=== PATIENT | female | born 1935 | race Caucasian/White ===

== ENCOUNTER 2017-06-16 14:47 | Inpatient (IN) | payer MEDICARE, OTHER ==
[2017-06-16] MEDS: ONDANSETRON PF 4 MG/2 ML VIAL. IV (15:13)
[2017-06-16 15:15] LABS: BASO % 0 % (0-3); EOS % 0 % (0-3); HEMATOCRIT 36.1 % (36.0-47.0); HEMOGLOBIN 11.9 g/dL (12.0-15.5); LYMPH # 0.7 x10^3/uL (1.0-4.8); LYMPH % 6 % (24-48); MEAN CORPUSCULAR HEMOGLOBIN 30 pg (25-35); MEAN CORPUSCULAR HGB CONC 33 g/dL (31-37); MEAN CORPUSCULAR VOLUME 91 fL (79-100); MONO # 0.6 x10^3/uL (0.0-1.1); MONO % 5 % (0-9); NEUT # 10.1 x10^3uL (1.8-7.7); NEUT % 88 % (31-73); PLATELET COUNT 374 x10^3/uL (140-400); RED BLOOD COUNT 3.95 x10^6/uL (3.50-5.40); RED CELL DISTRIBUTION WIDTH 14.1 % (11.5-14.5); WHITE BLOOD COUNT 11.5 x10^3/uL (4.0-11.0)
[2017-06-16] MEDS: fentaNYL PF VIAL 100 MCG/2 ML VIAL IV ×2 (15:16→20:45)
[2017-06-16 15:23] LABS: ADD MAN DIFF? YES
[2017-06-16 15:27] LABS: PROTHROMBIN TIME PATIENT 12.7 SEC (11.7-14.0)
[2017-06-16 15:43] LABS: ANION GAP 6 (6-14); BLOOD UREA NITROGEN 41 mg/dL (7-20); BUN/CREATININE RATIO 29 (6-20); CALCIUM 9.1 mg/dL (8.5-10.1); CARBON DIOXIDE 34 mmol/L (21-32); CHLORIDE 98 mmol/L (98-107); CREATININE 1.4 mg/dL (0.6-1.0); GLUCOSE 261 mg/dL (70-99); POTASSIUM 4.6 mmol/L (3.5-5.1); SODIUM 138 mmol/L (136-145)
[2017-06-16 15:50] LABS: ALBUMIN 3.1 g/dL (3.4-5.0); ALBUMIN/GLOBULIN RATIO 0.8 (1.0-1.7); ALK PHOS 107 U/L (46-116); ALT (SGPT) 30 U/L (14-59); AST (SGOT) 25 U/L (15-37); TOTAL BILIRUBIN 0.2 mg/dL (0.2-1.0); TOTAL PROTEIN 7.2 g/dL (6.4-8.2)
[2017-06-16] MEDS ORDERED: ONDANSETRON PF 4 MG/2 ML VIAL. IV (16:30)
[2017-06-16 16:50] LABS: % LYMPHS 12 % (24-48); % MONOS 3 % (0-10); % SEGS 85 % (35-66)
[2017-06-16 16:51] LABS: PLT ESTIMATE ADEQUATE (ADEQUATE)
[2017-06-16] MEDS: IV NORMAL SALINE 1000ML BAG 1,000 ML IV ×2 (17:45→23:06)
[2017-06-16] MEDS: ALPRAZolam 0.25 MG TABLET PO (20:45)
[2017-06-16] MEDS: PRIMIDONE 50 MG TABLET PO (20:45)
[2017-06-16] MEDS: traZODone 50 MG TABLET. PO (21:00)
[2017-06-16] MEDS: IPRATRPIUM/ALBUTEROL 0.5/2.5MG 3 ML NEBU. NEB (22:30)
[2017-06-17] MEDS: fentaNYL PF VIAL 100 MCG/2 ML VIAL IV ×5 (01:26→12:21)
[2017-06-17] MEDS: traMADol 50 MG TABLET PO (06:23)
[2017-06-17] MEDS: IPRATRPIUM/ALBUTEROL 0.5/2.5MG 3 ML NEBU. NEB ×4 (07:08→19:05)
[2017-06-17] MEDS ORDERED: DEXAMETHASONE SOD PHOS 20 MG/5 ML VIAL. (07:14)
[2017-06-17] MEDS ORDERED: PROPOFOL 20 ML IV (07:14)
[2017-06-17] MEDS ORDERED: ONDANSETRON PF 4 MG/2 ML VIAL. (07:14)
[2017-06-17] MEDS ORDERED: LIDOCAINE 2% PF Vial for OR 5 ML VIAL. (07:14)
[2017-06-17] MEDS: POTASSIUM CHLORIDE 20 MEQ TABLET.ER. PO (08:00)
[2017-06-17] MEDS ORDERED: IPRATRPIUM/ALBUTEROL 0.5/2.5MG 3 ML NEBU. NEB (08:00)
[2017-06-17] MEDS ORDERED: fentaNYL PF VIAL 100 MCG/2 ML VIAL (08:03)
[2017-06-17] MEDS ORDERED: ROCURONIUM 50 MG/5 ML VIAL. (08:03)
[2017-06-17] MEDS: BUPIVACAINE-EPI 0.25%-1:200000 50 ML VIAL. (08:31)
[2017-06-17] MEDS ORDERED: PHENYLEPHRINE in 0.9% NACL PF 1 MG/10 ML SYRINGE. IV (08:36)
[2017-06-17] MEDS: ASPIRIN ENTERIC COATED 325 MG TABLET.DR. PO (09:00)
[2017-06-17] MEDS: PRIMIDONE 50 MG TABLET PO ×3 (09:00→20:56)
[2017-06-17] MEDS ORDERED: DESFLURANE 61 TO 120 MINUTES IH (09:00)
[2017-06-17] MEDS: CITALOPRAM 20 MG TABLET. PO (09:00)
[2017-06-17] MEDS: predniSONE 20 MG TABLET PO (09:00)
[2017-06-17] MEDS: ATENOLOL 50 MG TABLET. PO (09:00)
[2017-06-17] MEDS ORDERED: GLYCOPYRROLATE 1 MG/5 ML VIAL. (09:30)
[2017-06-17] MEDS ORDERED: NEOSTIGMINE 10 MG/10 ML VIAL. (09:30)
[2017-06-17] MEDS ORDERED: fentaNYL PF VIAL 100 MCG/2 ML VIAL IV ×2 (10:00→10:15)
[2017-06-17] MEDS ORDERED: ONDANSETRON PF 4 MG/2 ML VIAL. IV ×2 (10:00→10:15)
[2017-06-17] MEDS ORDERED: MORPHINE SULFATE 2 MG/ML DISP.SYRIN. IV (10:00)
[2017-06-17] MEDS ORDERED: DEXTROSE 50% 25 GM / 50ML DISP.SYRIN. IV (10:00)
[2017-06-17 10:06] LABS: POC GLUCOSE 196 mg/dL (70-99)
[2017-06-17] MEDS ORDERED: PROCHLORPERAZINE 10 MG/2 ML VIAL. IV (10:15)
[2017-06-17] MEDS ORDERED: LIDOCAINE 1% PF 2 ML VIAL. ID (10:15)
[2017-06-17] MEDS: IV RINGERS,LACTATED 1000ML 1,000 ML IV (10:52)
[2017-06-17 12:24] LABS: ANION GAP 4 (6-14); BLOOD UREA NITROGEN 39 mg/dL (7-20); CALCIUM 8.3 mg/dL (8.5-10.1); CARBON DIOXIDE 36 mmol/L (21-32); CHLORIDE 101 mmol/L (98-107); CREATININE 1.4 mg/dL (0.6-1.0); GLUCOSE 245 mg/dL (70-99); POTASSIUM 4.3 mmol/L (3.5-5.1); SODIUM 141 mmol/L (136-145)
[2017-06-17 12:31] LABS: NT-PRO BNP 679 pg/mL (0-449)
[2017-06-17 12:31] LABS: CHOLESTEROL 217 mg/dL (0-200); HDLC 56 mg/dL (40-60); LDLC 103 mg/dL (0-100); NON-HDL CHOLESTEROL 161 mg/dL (0-129); TRIGLYCERIDES 292 mg/dL (0-150); VLDLC 58 mg/dL (0-40)
[2017-06-17 12:35] LABS: CHOLESTEROL/HDL RATIO 3.9
[2017-06-17] MEDS: MORPHINE SULFATE 4 MG/ML DISP.SYRIN. IV (16:33)
[2017-06-17 16:35] LABS: PH ABG 7.35 (7.35-7.45)
[2017-06-17 16:36] LABS: BASE EXCESS ABG 6 mmol/L (-3-3); HCO3 ABG 33 mmol/L (21-28); PCO2 ABG 61 mmHg (35-46); PO2 ABG 73 mmHg (65-108); SAT O2 ABG 94 % (92-99)
[2017-06-17] MEDS: oxyCODONE IR 5 MG TABLET PO ×2 (17:26→20:58)
[2017-06-17] MEDS: traZODone 50 MG TABLET. PO (20:57)
[2017-06-17] MEDS: HYDROcodone/APAP 7.5/325MG 1 TAB TABLET PO (23:21)
[2017-06-18] MEDS: oxyCODONE IR 5 MG TABLET PO ×2 (04:46→13:11)
[2017-06-18 05:17] LABS: ADD MAN DIFF? NO
[2017-06-18 05:33] LABS: BASO % 0 % (0-3); EOS # 0.1 x10^3/uL (0.0-0.7); EOS % 1 % (0-3); HEMATOCRIT 31.8 % (36.0-47.0); HEMOGLOBIN 10.2 g/dL (12.0-15.5); LYMPH # 1.3 x10^3/uL (1.0-4.8); LYMPH % 16 % (24-48); MEAN CORPUSCULAR HEMOGLOBIN 30 pg (25-35); MEAN CORPUSCULAR HGB CONC 32 g/dL (31-37); MEAN CORPUSCULAR VOLUME 93 fL (79-100); MONO # 0.8 x10^3/uL (0.0-1.1); MONO % 10 % (0-9); NEUT # 5.8 x10^3uL (1.8-7.7); NEUT % 73 % (31-73); PLATELET COUNT 293 x10^3/uL (140-400); RED BLOOD COUNT 3.44 x10^6/uL (3.50-5.40); RED CELL DISTRIBUTION WIDTH 14.6 % (11.5-14.5)
[2017-06-18 05:52] LABS: ANION GAP 1 (6-14); BLOOD UREA NITROGEN 25 mg/dL (7-20); CALCIUM 8.4 mg/dL (8.5-10.1); CARBON DIOXIDE 38 mmol/L (21-32); CHLORIDE 102 mmol/L (98-107); CREATININE 1.2 mg/dL (0.6-1.0); GLUCOSE 216 mg/dL (70-99); POTASSIUM 3.9 mmol/L (3.5-5.1); SODIUM 141 mmol/L (136-145)
[2017-06-18] MEDS ORDERED: MAGNESIUM HYDROXIDE 2,400 MG/30 ML ORAL.SUSP. PO (06:00)
[2017-06-18] MEDS: HYDROcodone/APAP 7.5/325MG 1 TAB TABLET PO (06:27)
[2017-06-18] MEDS: IPRATRPIUM/ALBUTEROL 0.5/2.5MG 3 ML NEBU. NEB ×4 (07:41→20:03)
[2017-06-18] MEDS: ASPIRIN 325 MG TABLET PO (08:00)
[2017-06-18] MEDS: ASPIRIN ENTERIC COATED 325 MG TABLET.DR. PO (08:49)
[2017-06-18] MEDS: CHOLECALCIFEROL (VITAMIN D3) 1,000 UNIT TABLET PO (08:49)
[2017-06-18] MEDS: POTASSIUM CHLORIDE 20 MEQ TABLET.ER. PO (08:49)
[2017-06-18] MEDS: predniSONE 20 MG TABLET PO (08:49)
[2017-06-18] MEDS: SENNOSIDES/DOCUSATE 8.6/50MG TABLET. PO (08:49)
[2017-06-18] MEDS: CITALOPRAM 20 MG TABLET. PO (08:49)
[2017-06-18] MEDS: ATENOLOL 50 MG TABLET. PO (08:49)
[2017-06-18] MEDS: PRIMIDONE 50 MG TABLET PO ×3 (08:52→20:29)
[2017-06-18] MEDS ORDERED: BISACODYL 10 MG SUPP.RECT. PR (16:00)
[2017-06-18] MEDS: traZODone 50 MG TABLET. PO (20:28)
[2017-06-18] MEDS: traMADol 50 MG TABLET PO (20:28)
[2017-06-19] MEDS: HYDROcodone/APAP 7.5/325MG 1 TAB TABLET PO ×3 (01:56→18:14)
[2017-06-19 05:38] LABS: ADD MAN DIFF? NO
[2017-06-19 05:58] LABS: ANION GAP 2 (6-14); BLOOD UREA NITROGEN 17 mg/dL (7-20); CALCIUM 8.1 mg/dL (8.5-10.1); CARBON DIOXIDE 37 mmol/L (21-32); CHLORIDE 103 mmol/L (98-107); CREATININE 1.1 mg/dL (0.6-1.0); GFR 47.6; GLUCOSE 201 mg/dL (70-99); SODIUM 142 mmol/L (136-145)
[2017-06-19 06:00] LABS: BASO % 0 % (0-3); EOS # 0.3 x10^3/uL (0.0-0.7); EOS % 3 % (0-3); HEMATOCRIT 30.5 % (36.0-47.0); LYMPH # 1.7 x10^3/uL (1.0-4.8); LYMPH % 19 % (24-48); MEAN CORPUSCULAR HEMOGLOBIN 30 pg (25-35); MEAN CORPUSCULAR HGB CONC 33 g/dL (31-37); MEAN CORPUSCULAR VOLUME 92 fL (79-100); MONO # 0.7 x10^3/uL (0.0-1.1); MONO % 8 % (0-9); NEUT # 6.1 x10^3uL (1.8-7.7); NEUT % 69 % (31-73); PLATELET COUNT 290 x10^3/uL (140-400); RED CELL DISTRIBUTION WIDTH 14.5 % (11.5-14.5); WHITE BLOOD COUNT 8.8 x10^3/uL (4.0-11.0)
[2017-06-19] MEDS: ASPIRIN 325 MG TABLET PO (07:22)
[2017-06-19] MEDS: IPRATRPIUM/ALBUTEROL 0.5/2.5MG 3 ML NEBU. NEB ×4 (07:28→20:08)
[2017-06-19] MEDS: POTASSIUM CHLORIDE 20 MEQ TABLET.ER. PO (08:31)
[2017-06-19] MEDS: CHOLECALCIFEROL (VITAMIN D3) 1,000 UNIT TABLET PO (08:31)
[2017-06-19] MEDS: ATENOLOL 50 MG TABLET. PO (08:32)
[2017-06-19] MEDS: PRIMIDONE 50 MG TABLET PO ×3 (08:32→21:07)
[2017-06-19] MEDS: ASPIRIN ENTERIC COATED 325 MG TABLET.DR. PO ×2 (08:32→21:05)
[2017-06-19] MEDS: CITALOPRAM 20 MG TABLET. PO (08:32)
[2017-06-19] MEDS: predniSONE 20 MG TABLET PO (08:32)
[2017-06-19] MEDS: SENNOSIDES/DOCUSATE 8.6/50MG TABLET. PO (08:33)
[2017-06-19] MEDS: ERGOCALCIFEROL (VITAMIN D2) 50,000 UNIT CAPSULE. PO (18:13)
[2017-06-19] MEDS: POLYETHYLENE GLYCOL 3350 17 GM PACKET. PO (18:14)
[2017-06-19] MEDS: oxyCODONE IR 5 MG TABLET PO (21:06)
[2017-06-19] MEDS: traZODone 50 MG TABLET. PO (21:07)
[2017-06-20] MEDS: oxyCODONE IR 5 MG TABLET PO (04:15)
[2017-06-20 04:36] LABS: ADD MAN DIFF? NO
[2017-06-20 04:46] LABS: BASO % 0 % (0-3); EOS # 0.2 x10^3/uL (0.0-0.7); EOS % 3 % (0-3); HEMATOCRIT 29.8 % (36.0-47.0); HEMOGLOBIN 9.8 g/dL (12.0-15.5); LYMPH # 1.6 x10^3/uL (1.0-4.8); LYMPH % 20 % (24-48); MEAN CORPUSCULAR HEMOGLOBIN 30 pg (25-35); MEAN CORPUSCULAR HGB CONC 33 g/dL (31-37); MEAN CORPUSCULAR VOLUME 92 fL (79-100); MONO # 0.5 x10^3/uL (0.0-1.1); MONO % 6 % (0-9); NEUT # 5.5 x10^3uL (1.8-7.7); NEUT % 71 % (31-73); PLATELET COUNT 289 x10^3/uL (140-400); RED BLOOD COUNT 3.24 x10^6/uL (3.50-5.40); RED CELL DISTRIBUTION WIDTH 14.4 % (11.5-14.5); WHITE BLOOD COUNT 7.8 x10^3/uL (4.0-11.0)
[2017-06-20 05:26] LABS: ANION GAP 1 (6-14); BLOOD UREA NITROGEN 18 mg/dL (7-20); CALCIUM 8.1 mg/dL (8.5-10.1); CARBON DIOXIDE 37 mmol/L (21-32); CHLORIDE 104 mmol/L (98-107); GFR 53.1; GLUCOSE 177 mg/dL (70-99); POTASSIUM 4.5 mmol/L (3.5-5.1); SODIUM 142 mmol/L (136-145)
[2017-06-20] MEDS: POTASSIUM CHLORIDE 20 MEQ TABLET.ER. PO (07:57)
[2017-06-20] MEDS: SENNOSIDES/DOCUSATE 8.6/50MG TABLET. PO (07:58)
[2017-06-20] MEDS: ASPIRIN ENTERIC COATED 325 MG TABLET.DR. PO (07:58)
[2017-06-20] MEDS: PRIMIDONE 50 MG TABLET PO (07:58)
[2017-06-20] MEDS: predniSONE 20 MG TABLET PO (07:58)
[2017-06-20] MEDS: ATENOLOL 50 MG TABLET. PO (07:59)
[2017-06-20] MEDS: CITALOPRAM 20 MG TABLET. PO (08:03)
[2017-06-20] MEDS: CHOLECALCIFEROL (VITAMIN D3) 1,000 UNIT TABLET PO (08:03)
[2017-06-20] MEDS: IPRATRPIUM/ALBUTEROL 0.5/2.5MG 3 ML NEBU. NEB (08:06)
[2017-06-20] MEDS: HYDROcodone/APAP 7.5/325MG 1 TAB TABLET PO (10:47)
== END 2017-06-20 14:33 | DRG 492 ==
LOC: ER 14:47 → 4 NORTH 15:41
PROC: 0QSJ04Z Reposition Right Fibula with Internal Fixation Device, Open Approach (ICD-10-PCS; principal; 2017-06-17 08:00)
DX: S82.851A Displaced trimalleolar fracture of right lower leg, initial encounter for closed fracture (principal); N17.0 Acute kidney failure with tubular necrosis; E87.4 Mixed disorder of acid-base balance; I50.32 Chronic diastolic (congestive) heart failure; I13.0 Hypertensive heart and chronic kidney disease with heart failure and stage 1 through stage 4 chronic kidney disease, or unspecified chronic kidney disease; J44.1 Chronic obstructive pulmonary disease with (acute) exacerbation; W00.0XXA Fall on same level due to ice and snow, initial encounter; G47.33 Obstructive sleep apnea (adult) (pediatric); H91.90 Unspecified hearing loss, unspecified ear; F41.9 Anxiety disorder, unspecified; M19.90 Unspecified osteoarthritis, unspecified site; N18.3 Chronic kidney disease, stage 3 (moderate); T38.0X5A Adverse effect of glucocorticoids and synthetic analogues, initial encounter; Y93.01 Activity, walking, marching and hiking; Z82.49 Family history of ischemic heart disease and other diseases of the circulatory system; Z86.73 Personal history of transient ischemic attack (TIA), and cerebral infarction without residual deficits; Z87.891 Personal history of nicotine dependence; Z99.81 Dependence on supplemental oxygen; Y92.89 Other specified places as the place of occurrence of the external cause; Y99.8 Other external cause status; Z88.8 Allergy status to other drugs, medicaments and biological substances; Z90.49 Acquired absence of other specified parts of digestive tract
CPT/HCPCS: 36415; 71045; 73590; 73600; 73610; 80048; 80053; 80061; 82306; 82805; 82962; 83880; 85007; 85025; 85610; 93005; 94640; 94660; 94760; 96374; 96375; 97163-GP; 97166-GO; 97530-GO; 97530-GP; 97535-GO; 99285; 99285-25; A4215; C1713; J0690; J1100; J2270; J2370; J2405; J2704; J2710; J3010; J3490; J7030; J7120; J7512; J7620

== ENCOUNTER 2017-07-10 18:11 | Inpatient (IN) | payer MEDICARE, OTHER ==
[2017-07-10] MEDS ORDERED: AZITHROMYCIN 250 MG TABLET. PO (19:00)
[2017-07-10 19:57] LABS: BASE EXCESS ABG 13 mmol/L (-3-3); HCO3 ABG 41 mmol/L (21-28); PH ABG 7.37 (7.35-7.45); PO2 ABG 105 mmHg (65-108); SAT O2 ABG 98 % (92-99)
[2017-07-10] MEDS ORDERED: POLYETHYLENE GLYCOL 3350 17 GM PACKET. PO (20:00)
[2017-07-10] MEDS ORDERED: cefTRIAXone IV Push 1 GM VIAL. IVP (20:00)
[2017-07-10] MEDS: IPRATRPIUM/ALBUTEROL 0.5/2.5MG 3 ML NEBU. NEB ×2 (20:05→20:25)
[2017-07-10 20:24] LABS: PCO2 ABG 73 mmHg (35-46)
[2017-07-10] MEDS: LACTOBACILLUS RHAMNOSUS GG 1 CAPSULE. PO (20:39)
[2017-07-10] MEDS: ALPRAZolam 0.25 MG TABLET PO (20:39)
[2017-07-10] MEDS: ASPIRIN ENTERIC COATED 325 MG TABLET.DR. PO (20:39)
[2017-07-10] MEDS: traZODone 50 MG TABLET. PO (21:39)
[2017-07-11 05:49] LABS: BASE EXCESS ABG 11 mmol/L (-3-3); HCO3 ABG 42 mmol/L (21-28); PH ABG 7.23 (7.35-7.45); PO2 ABG 58 mmHg (65-108); SAT O2 ABG 85 % (92-99)
[2017-07-11] MEDS ORDERED: PROPOFOL 100 ML IV ×2 (06:00)
[2017-07-11] MEDS ORDERED: ETOMIDATE 20 MG/10 ML VIAL. IV ×2 (06:00→06:01)
[2017-07-11] MEDS ORDERED: SUCCINYLCHOLINE 200 MG/10 ML VIAL. ×2 (06:00→06:01)
[2017-07-11 06:05] LABS: FIO2 ABG 50; PCO2 ABG 104 mmHg (35-46)
[2017-07-11] MEDS ORDERED: IV NORMAL SALINE 500ML BAG 500 ML IV (06:15)
[2017-07-11] MEDS: IV DEXTROSE 5 %-0.45 % NACL 1,000 ML IV (07:09)
[2017-07-11] MEDS: PROPOFOL 100 ML IV ×3 (07:11→13:51)
[2017-07-11] MEDS: IPRATRPIUM/ALBUTEROL 0.5/2.5MG 3 ML NEBU. NEB ×4 (07:20→19:50)
[2017-07-11 07:44] LABS: BASE EXCESS ABG 9 mmol/L (-3-3); HCO3 ABG 34 mmol/L (21-28); PCO2 ABG 50 mmHg (35-46); PH ABG 7.46 (7.35-7.45); PO2 ABG 66 mmHg (65-108); SAT O2 ABG 94 % (92-99)
[2017-07-11] MEDS: FAMOTIDINE 20 MG/2 ML VIAL IVP ×2 (08:26→21:45)
[2017-07-11] MEDS: ALPRAZolam 0.25 MG TABLET PO (08:26)
[2017-07-11] MEDS: MIDAZOLAM HCL/PF 2 MG/2 ML VIAL. IV ×4 (08:26→14:44)
[2017-07-11] MEDS: CITALOPRAM 20 MG TABLET. PO (08:26)
[2017-07-11] MEDS: ASPIRIN ENTERIC COATED 325 MG TABLET.DR. PO (08:27)
[2017-07-11] MEDS: AZITHROMYCIN 250 MG TABLET. PO (08:27)
[2017-07-11] MEDS: CHLORHEXIDINE 0.12% 15 ML MOUTHWASH. MM ×2 (08:28→21:45)
[2017-07-11] MEDS: LACTOBACILLUS RHAMNOSUS GG 1 CAPSULE. PO (08:30)
[2017-07-11] MEDS: SENNOSIDES/DOCUSATE 8.6/50MG TABLET. PO (08:30)
[2017-07-11 08:59] LABS: FIO2 ABG 60
[2017-07-11] MEDS: dilTIAZem HCL 30 MG TABLET PO ×3 (09:45→23:51)
[2017-07-11] MEDS: ASPIRIN CHEWABLE 81 MG TABLET. PO (09:45)
[2017-07-11 10:54] LABS: ADD MAN DIFF? NO
[2017-07-11 10:56] LABS: BASO # 0.1 x10^3/uL (0.0-0.2); BASO % 1 % (0-3); EOS % 1 % (0-3); HEMOGLOBIN 9.3 g/dL (12.0-15.5); LYMPH % 20 % (24-48); MEAN CORPUSCULAR HEMOGLOBIN 30 pg (25-35); MEAN CORPUSCULAR HGB CONC 32 g/dL (31-37); MEAN CORPUSCULAR VOLUME 93 fL (79-100); MONO # 0.5 x10^3/uL (0.0-1.1); MONO % 10 % (0-9); NEUT # 3.5 x10^3uL (1.8-7.7); NEUT % 69 % (31-73); PLATELET COUNT 325 x10^3/uL (140-400); RED BLOOD COUNT 3.11 x10^6/uL (3.50-5.40); RED CELL DISTRIBUTION WIDTH 15.8 % (11.5-14.5)
[2017-07-11 11:13] LABS: ALBUMIN 2.7 g/dL (3.4-5.0); ALBUMIN/GLOBULIN RATIO 0.7 (1.0-1.7); ALK PHOS 114 U/L (46-116); ALT (SGPT) 16 U/L (14-59); ANION GAP 6 (6-14); AST (SGOT) 14 U/L (15-37); BLOOD UREA NITROGEN 25 mg/dL (7-20); BUN/CREATININE RATIO 23 (6-20); CALCIUM 9.1 mg/dL (8.5-10.1); CARBON DIOXIDE 36 mmol/L (21-32); CHLORIDE 101 mmol/L (98-107); CREATININE 1.1 mg/dL (0.6-1.0); GFR 47.6; GLUCOSE 126 mg/dL (70-99); POTASSIUM 3.9 mmol/L (3.5-5.1); SODIUM 143 mmol/L (136-145); TOTAL BILIRUBIN 0.3 mg/dL (0.2-1.0); TOTAL PROTEIN 6.6 g/dL (6.4-8.2)
[2017-07-11] MEDS: cefTRIAXone IV Push 1 GM VIAL. IVP (12:51)
[2017-07-11] MEDS: ENOXAPARIN 40 MG/0.4 ML SYRINGE. SQ (14:44)
[2017-07-11] MEDS ORDERED: PIP/TAZO PER PHARMACY MC (15:15)
[2017-07-11] MEDS ORDERED: MORPHINE SULFATE 4 MG/ML DISP.SYRIN. IV ×2 (15:30)
[2017-07-11] MEDS: MIDAZOLAM 100MG/100ML PREMIX 100 ML IV (15:52)
[2017-07-11] MEDS: PIPERACILLIN/TAZOBACTAM 4.5 GM in IV NORMAL SALINE 100ML 100 ML IV ×2 (16:23→23:50)
[2017-07-11] MEDS: VANCOMYCIN 2 GM in IV DEXTROSE 5 %-0.2 % NACL 500 ML IV (17:11)
[2017-07-11] MEDS: VANCOMYCIN PER PHARMACY MC (17:18)
[2017-07-11] MEDS ORDERED: CHLORHEXIDINE 0.12% 15 ML MOUTHWASH. MM (21:00)
[2017-07-11 21:24] LABS: MRSA BY PCR Negative (Negative)
[2017-07-12] MEDS: IV DEXTROSE 5 %-0.45 % NACL 1,000 ML IV ×2 (02:30→07:34)
[2017-07-12] MEDS: MIDAZOLAM 100MG/100ML PREMIX 100 ML IV (03:55)
[2017-07-12] MEDS: dilTIAZem HCL 30 MG TABLET PO ×3 (05:33→21:34)
[2017-07-12] MEDS: PIPERACILLIN/TAZOBACTAM 4.5 GM in IV NORMAL SALINE 100ML 100 ML IV ×4 (05:33→23:34)
[2017-07-12 06:06] LABS: ADD MAN DIFF? NO
[2017-07-12 06:34] LABS: BASO % 1 % (0-3); EOS # 0.2 x10^3/uL (0.0-0.7); EOS % 4 % (0-3); HEMATOCRIT 30.4 % (36.0-47.0); HEMOGLOBIN 9.8 g/dL (12.0-15.5); LYMPH # 0.9 x10^3/uL (1.0-4.8); LYMPH % 20 % (24-48); MEAN CORPUSCULAR HEMOGLOBIN 30 pg (25-35); MEAN CORPUSCULAR HGB CONC 32 g/dL (31-37); MEAN CORPUSCULAR VOLUME 92 fL (79-100); MONO # 0.4 x10^3/uL (0.0-1.1); MONO % 8 % (0-9); NEUT % 67 % (31-73); PLATELET COUNT 356 x10^3/uL (140-400); RED BLOOD COUNT 3.31 x10^6/uL (3.50-5.40); RED CELL DISTRIBUTION WIDTH 16.4 % (11.5-14.5); WHITE BLOOD COUNT 4.5 x10^3/uL (4.0-11.0)
[2017-07-12 06:43] LABS: ALBUMIN 2.5 g/dL (3.4-5.0); ALBUMIN/GLOBULIN RATIO 0.7 (1.0-1.7); ALK PHOS 103 U/L (46-116); ALT (SGPT) 16 U/L (14-59); ANION GAP 7 (6-14); AST (SGOT) 12 U/L (15-37); BLOOD UREA NITROGEN 27 mg/dL (7-20); BUN/CREATININE RATIO 23 (6-20); CALCIUM 8.2 mg/dL (8.5-10.1); CARBON DIOXIDE 33 mmol/L (21-32); CHLORIDE 102 mmol/L (98-107); CREATININE 1.2 mg/dL (0.6-1.0); GLUCOSE 162 mg/dL (70-99); POTASSIUM 3.6 mmol/L (3.5-5.1); SODIUM 142 mmol/L (136-145); TOTAL BILIRUBIN 0.4 mg/dL (0.2-1.0); TOTAL PROTEIN 6.1 g/dL (6.4-8.2)
[2017-07-12] MEDS: IPRATRPIUM/ALBUTEROL 0.5/2.5MG 3 ML NEBU. NEB ×4 (07:54→19:39)
[2017-07-12 08:16] LABS: BASE EXCESS ABG 9 mmol/L (-3-3); HCO3 ABG 33 mmol/L (21-28); PCO2 ABG 44 mmHg (35-46); PO2 ABG 91 mmHg (65-108); SAT O2 ABG 97 % (92-99)
[2017-07-12] MEDS: ASPIRIN CHEWABLE 81 MG TABLET. PO (08:21)
[2017-07-12] MEDS: CITALOPRAM 20 MG TABLET. PO (08:21)
[2017-07-12] MEDS: FAMOTIDINE 20 MG/2 ML VIAL IVP (08:21)
[2017-07-12] MEDS: SENNOSIDES/DOCUSATE 8.6/50MG TABLET. PO (08:21)
[2017-07-12] MEDS: CHLORHEXIDINE 0.12% 15 ML MOUTHWASH. MM ×2 (08:22→08:26)
[2017-07-12 08:48] LABS: FIO2 ABG 60
[2017-07-12] MEDS: VANCOMYCIN PER PHARMACY MC (10:11)
[2017-07-12] MEDS: ENOXAPARIN 40 MG/0.4 ML SYRINGE. SQ (13:59)
[2017-07-12] MEDS: VANCOMYCIN 1.5 GM in IV DEXTROSE 5 %-0.2 % NACL 500 ML IV (17:05)
[2017-07-12] MEDS: MORPHINE SULFATE/PF 30 ML IV (19:28)
[2017-07-12] MEDS: diphenhydrAMINE 50 MG/ML VIAL IVP (23:09)
[2017-07-12] MEDS: fentaNYL PF VIAL 100 MCG/2 ML VIAL IV (23:09)
[2017-07-13 05:17] LABS: ADD MAN DIFF? NO; BASO % 0 % (0-3); EOS # 0.3 x10^3/uL (0.0-0.7); EOS % 5 % (0-3); HEMATOCRIT 35.5 % (36.0-47.0); HEMOGLOBIN 11.2 g/dL (12.0-15.5); LYMPH # 0.8 x10^3/uL (1.0-4.8); LYMPH % 10 % (24-48); MEAN CORPUSCULAR HEMOGLOBIN 30 pg (25-35); MEAN CORPUSCULAR HGB CONC 32 g/dL (31-37); MEAN CORPUSCULAR VOLUME 95 fL (79-100); MONO # 0.7 x10^3/uL (0.0-1.1); MONO % 10 % (0-9); NEUT # 5.6 x10^3uL (1.8-7.7); NEUT % 75 % (31-73); PLATELET COUNT 509 x10^3/uL (140-400); RED BLOOD COUNT 3.74 x10^6/uL (3.50-5.40); WHITE BLOOD COUNT 7.4 x10^3/uL (4.0-11.0)
[2017-07-13 05:38] LABS: ANION GAP 8 (6-14); BLOOD UREA NITROGEN 23 mg/dL (7-20); CALCIUM 8.7 mg/dL (8.5-10.1); CARBON DIOXIDE 35 mmol/L (21-32); CHLORIDE 101 mmol/L (98-107); CREATININE 1.5 mg/dL (0.6-1.0); GFR 33.2; GLUCOSE 194 mg/dL (70-99); POTASSIUM 3.9 mmol/L (3.5-5.1); SODIUM 144 mmol/L (136-145)
[2017-07-13] MEDS: dilTIAZem HCL 30 MG TABLET PO ×3 (06:00→21:22)
[2017-07-13] MEDS: PIPERACILLIN/TAZOBACTAM 4.5 GM in IV NORMAL SALINE 100ML 100 ML IV ×2 (06:10→11:58)
[2017-07-13] MEDS: IPRATRPIUM/ALBUTEROL 0.5/2.5MG 3 ML NEBU. NEB (08:00)
[2017-07-13] MEDS: FAMOTIDINE 20 MG/2 ML VIAL IVP (08:52)
[2017-07-13] MEDS: SENNOSIDES/DOCUSATE 8.6/50MG TABLET. PO (08:53)
[2017-07-13] MEDS: ASPIRIN CHEWABLE 81 MG TABLET. PO (08:53)
[2017-07-13] MEDS: CITALOPRAM 20 MG TABLET. PO (08:53)
[2017-07-13] MEDS: fentaNYL PF VIAL 100 MCG/2 ML VIAL IV ×5 (10:04→21:23)
[2017-07-13] MEDS: diphenhydrAMINE 50 MG/ML VIAL IVP ×2 (11:46→21:53)
[2017-07-13] MEDS: IV DEXTROSE 5 %-0.45 % NACL 1,000 ML IV (13:55)
[2017-07-14] MEDS: fentaNYL PF VIAL 100 MCG/2 ML VIAL IV ×8 (02:50→17:03)
[2017-07-14] MEDS: dilTIAZem HCL 30 MG TABLET PO (05:33)
[2017-07-14] MEDS: diphenhydrAMINE 50 MG/ML VIAL IVP ×2 (06:01→15:20)
[2017-07-14] MEDS: ASPIRIN CHEWABLE 81 MG TABLET. PO (09:00)
[2017-07-14] MEDS: CITALOPRAM 20 MG TABLET. PO (09:00)
[2017-07-14] MEDS: SENNOSIDES/DOCUSATE 8.6/50MG TABLET. PO (09:00)
[2017-07-14] MEDS: FAMOTIDINE 20 MG/2 ML VIAL IVP (10:01)
[2017-07-14] MEDS ORDERED: MORPHINE SULFATE 20 MG/ML CONC SOLUTION. SL (10:30)
[2017-07-14] MEDS: IV DEXTROSE 5 %-0.45 % NACL 1,000 ML IV ×2 (14:30→15:07)
== END 2017-07-14 19:05 | disposition hospice, home (50) | DRG 208 ==
LOC: 5 SOUTH 07-13 15:33 → 1 WEST ICU 18:11
PROVIDERS: Internal Medicine
PROC: 5A1945Z Respiratory Ventilation, 24-96 Consecutive Hours (ICD-10-PCS; principal; 2017-07-11)
PROC: 0BH17EZ Insertion of Endotracheal Airway into Trachea, Via Natural or Artificial Opening (ICD-10-PCS; 2017-07-11)
PROC: 5A09357 Assistance with Respiratory Ventilation, Less than 24 Consecutive Hours, Continuous Positive Airway Pressure (ICD-10-PCS; 2017-07-11)
DX: J96.21 Acute and chronic respiratory failure with hypoxia (principal); J15.6 Pneumonia due to other Gram-negative bacteria; G92 Toxic encephalopathy; E44.0 Moderate protein-calorie malnutrition; I13.0 Hypertensive heart and chronic kidney disease with heart failure and stage 1 through stage 4 chronic kidney disease, or unspecified chronic kidney disease; G93.1 Anoxic brain damage, not elsewhere classified; E87.2 Acidosis; I50.32 Chronic diastolic (congestive) heart failure; J44.0 Chronic obstructive pulmonary disease with (acute) lower respiratory infection; J44.1 Chronic obstructive pulmonary disease with (acute) exacerbation; Z88.8 Allergy status to other drugs, medicaments and biological substances; E66.9 Obesity, unspecified; F41.9 Anxiety disorder, unspecified; G47.33 Obstructive sleep apnea (adult) (pediatric); H91.90 Unspecified hearing loss, unspecified ear; J96.22 Acute and chronic respiratory failure with hypercapnia; M19.90 Unspecified osteoarthritis, unspecified site; N18.3 Chronic kidney disease, stage 3 (moderate); Z51.5 Encounter for palliative care; Z66 Do not resuscitate; Z68.34 Body mass index [BMI] 34.0-34.9, adult; Z79.82 Long term (current) use of aspirin; Z79.899 Other long term (current) drug therapy; Z86.73 Personal history of transient ischemic attack (TIA), and cerebral infarction without residual deficits; Z90.49 Acquired absence of other specified parts of digestive tract; Z87.81 Personal history of (healed) traumatic fracture
CPT/HCPCS: 36415; 36600; 71045; 74018; 80048; 80053; 82805; 85025; 87641; 93970; 94003; 94640; 94660; J0330; J0696; J1200; J1650; J2060; J2250; J2270; J2543; J2704; J3010; J3370; J7620; Q0144; S0028